=== PATIENT | female | born 1970 | race Caucasian/White ===

== ENCOUNTER 2018-10-23 10:20 | Emergency (ER) | payer MEDICAID, OTHER ==
[2018-10-23 10:35] VITALS: BP 145/71
--- NOTE | 2018-10-23 10:42 | ED Physician Documentation ---
PD HPI URI - Stated complaint Stated Complaint: COUGH/SOA - Chief complaint Chief Complaint: Resp - History obtained from History obtained from: Patient - History of Present Illness Timing - onset: How many weeks ago (3) Timing duration: Weeks (3) Timing details: Gradual onset, Still present Associated symptoms: Fever (initially with illness and then again the past few days), Productive cough. No: Nasal congestion, Sore throat Contributing factors: COPD / asthma. No: Sick contact Improves by: MDI/nebulizer (does help with wheezing moderately). No: Medication (cough med) Worsened by: Activity Similar symptoms before: Diagnosis (has asthma with exac when sick in the past.) Recently seen: Not recently seen Review of Systems Constitutional: reports: Fever, Myalgias Nose: denies: Rhinorrhea / runny nose, Congestion Throat: denies: Sore throat Cardiac: denies: Chest pain / pressure Respiratory: reports: Dyspnea, Cough, Wheezing GI: denies: Abdominal Pain, Nausea, Vomiting, Diarrhea Skin: denies: Rash Musculoskeletal: denies: Extremity swelling Neurologic: reports: Generalized weakness PD PAST MEDICAL HISTORY - Past Medical History Past Medical History: Yes Respiratory: Asthma HEENT: Glaucoma - Past Surgical History 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, 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 - Present Medications Home Medications: Ambulatory Orders Medication Instructions Recorded Confirmed Beclomethasone 80 Mcg [Qvar 80] 2 puffs IH Q4HR PRN 07/26/16 07/26/16 Albuterol Sulf [Ventolin Hfa 2 - 3 puffs INH Q4HR PRN #1 inhaler 10/23/18 Inhaler] Azithromycin [Zithromax] 0 mg PO DAILY #6 tablet 10/23/18 Benzonatate [Tessalon Perle] 100 - 200 mg PO TID PRN #30 capsule 10/23/18 Dexamethasone [Decadron] 4 mg PO DAILY #5 tablet 10/23/18 - Allergies Allergies/Adverse Reactions: Allergies Allergy/AdvReac Type Severity Reaction Status Date / Time aspirin Allergy Rash Verified 10/23/18 10:31 - Social History Does the pt smoke?: No Smoking Status: Former smoker Does the pt drink ETOH?: No Does the pt have substance abuse?: No - Immunizations Immunizations are current?: Yes - POLST Patient has POLST: No PD ED PE NORMAL - Vitals Vital signs reviewed: Yes - General General: Alert and oriented X 3, No acute distress, Well developed/nourished - HEENT HEENT: Ears normal, Pharynx benign - Neck Neck: Supple, no meningeal sign, No adenopathy - Cardiac Cardiac: RRR, No murmur - Respiratory Respiratory: No respiratory distress. No: Clear bilaterally (wheezing noted, but no coarse sounds) - Abdomen Abdomen: Soft, Non tender - Derm Derm: Normal color, Warm and dry - Extremities Extremities: No tenderness to palpate, Normal ROM s pain, No edema, No calf tenderness / cord - Neuro Neuro: Alert and oriented X 3, No motor deficit, Normal speech Results - Vitals Vitals: Vital Signs - 24 hr 10/23/18 10:28 Temperature 35.4 C L Heart Rate 96 Respiratory 16 Rate Blood Pressure 145/71 H O2 Saturation 94 Oxygen O2 Source Room air - Rads (name of study) chest xray Radiology: Prelim report reviewed (no infiltrates nor effusions), See rad report PD MEDICAL DECISION MAKING - ED course Complexity details: reviewed results, considered differential (prolonged caough with pertussis-like character. No pnuemonia. ), d/w patient Departure - Departure Disposition: Home, Self Care Clinical Impression: Acute bronchitis Qualifiers: Bronchitis organism: unspecified organism Qualified Code(s): J20.9 - Acute bronchitis, unspecified Condition: Stable Record reviewed to determine appropriate education?: Yes Instructions: ED Upper Resp Infec Abx Tx Follow-Up: Karina Infante ARNP [Primary Care Provider] - Prescriptions: Albuterol Sulf [Ventolin Hfa Inhaler] 2 - 3 puffs INH Q4HR PRN #1 inhaler PRN Reason: Shortness Of Air/Wheezing Azithromycin [Zithromax] 0 mg PO DAILY #6 tablet Benzonatate [Tessalon Perle] 100 - 200 mg PO TID PRN #30 capsule PRN Reason: Cough Dexamethasone [Decadron] 4 mg PO DAILY #5 tablet Comments: Your chest x-ray appears normal without any signs of pneumonia or fluid or other abnormalities. This sounds bronchial and we will treated as an infection and inflammation with azithromycin antibiotic and Decadron steroid. Use Tessalon as needed for cough suppression. He can use [id number] cough medicine to. Use the albuterol inhaler 2-3 puffs 4 times a day regularly for the next 7-10 days and then extra times as needed. Recheck if not improving over the next 3-5 days though you may still have some degree of mild cough for a few weeks. Discharge Date/Time: 10/23/18 12:37
[2018-10-23] MEDS ORDERED: DOXYCYCLINE 100 MG TABLET PO STA (10:57)
[2018-10-23] MEDS ORDERED: BENZONATATE 100 MG CAPSULE PO STA (10:57)
[2018-10-23] MEDS ORDERED: DEXAMETHASONE 10 MG/ML VIAL PO STA (10:57)
[2018-10-23] MEDS ORDERED: AZITHROMYCIN 250 MG TABLET PO STA (10:59)
[2018-10-23] MEDS ORDERED: CHERRY SYRUP 10 ML UDC PO ONE (11:04)
--- NOTE | 2018-10-23 11:22 | XRAY Report ---
Reason: cough for 3 weeks Procedure Date: 10/23/2018 Accession Number: [id number] / [id number] Procedure: XR - Chest 2 View X-Ray CPT Code: 48562 FULL RESULT: EXAM: CHEST RADIOGRAPHY EXAM DATE: 10/23/2018 11:10 AM. CLINICAL HISTORY: Cough for 3 weeks. COMPARISON: CHEST 2 VIEW PA/LAT 08/06/2014 1:32 AM. TECHNIQUE: 2 views. FINDINGS: Lungs/Pleura: No focal opacities evident. No pleural effusion. No pneumothorax. Normal volumes. Mediastinum: Heart and mediastinal contours are unremarkable. Other: None. IMPRESSION: No acute cardiopulmonary abnormality. RADIA
[2018-10-23] MEDS ORDERED: ALBUTEROL NEB 2.5 MG/3 ML INH STA (11:31)
== END 2018-10-23 12:37 | disposition home or self-care (01) ==
LOC: ED 10:20
DX: J20.9 Acute bronchitis, unspecified (principal); Z87.891 Personal history of nicotine dependence
CPT/HCPCS: 71046; 99283; A9270

== ENCOUNTER 2018-12-25 08:30 | Emergency (ER) | payer MEDICAID ==
[2018-12-25] MEDS ORDERED: ALBUTEROL NEB 2.5 MG/3 ML INH STA (08:45)
[2018-12-25] MEDS ORDERED: DEXAMETHASONE 10 MG/ML VIAL PO STA (08:45)
[2018-12-25] MEDS ORDERED: IPRATROPIUM/ALBUTEROL 3 ML NEB INH STA (08:45)
--- NOTE | 2018-12-25 09:34 | ED Physician Documentation ---
PD HPI DYSPNEA - Stated complaint Stated Complaint: DIFFICUTLY BREATHING - Chief complaint Chief Complaint: Resp - Additional information Additional information: 48-year-old female presents the emergency department for evaluation of wheezing and shortness of breath. The patient has a history of asthma and has been using her inhaler with some Improvement. The patient does continue to smoke and was able to smoke cigarettes on the right up to the hospital. No other associated symptoms. Symptoms are described as moderate. 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 - Present Medications Home Medications: Ambulatory Orders Medication Instructions Recorded Confirmed Albuterol Sulf [Ventolin Hfa 2 - 3 puffs INH Q4HR PRN #1 inhaler 10/23/18 Inhaler] Albuterol Sulf [Ventolin Hfa 1 - 2 puffs INH Q4HR PRN #1 inhaler 12/25/18 Inhaler] - Allergies Allergies/Adverse Reactions: Allergies Allergy/AdvReac Type Severity Reaction Status Date / Time aspirin Allergy Rash Verified 12/25/18 08:39 - Social History Does the pt smoke?: No Smoking Status: Current some day smoker Does the pt drink ETOH?: No Does the pt have substance abuse?: No - Immunizations Immunizations are current?: Yes - POLST Patient has POLST: No PD ED PE NORMAL - General General: Alert and oriented X 3 - HEENT HEENT: Atraumatic, PERRL, EOMI, Ears normal - Cardiac Cardiac: RRR, Strong equal pulses - Respiratory Respiratory: No respiratory distress, Other (Bilateral expiratory wheezing) - Derm Derm: Normal color - Extremities Extremities: No deformity, No edema - Neuro Neuro: Alert and oriented X 3, Normal speech - Psych Psych: Normal mood Results - Vitals Vitals: Vital Signs - 24 hr 12/25/18 12/25/18 08:36 09:04 Temperature 36.6 C Heart Rate 93 90 Respiratory 20 20 Rate Blood Pressure 141/71 H O2 Saturation 94 Oxygen O2 Source Room air PD MEDICAL DECISION MAKING - ED course ED course: The patient's symptoms appear to be secondary to her tobacco usage triggering her asthma. The patient was treated in the emergency department and appears much improved and now appears appropriate for discharge with ongoing outpatient management. I recommended follow-up with primary care and smoking cessation. The patient will return to the emergency department for any worsening or any concerns Departure - Departure Disposition: 01 Home, Self Care Clinical Impression: Asthma exacerbation Qualifiers: Asthma severity: mild Asthma persistence: unspecified Qualified Code(s): J45.901 - Unspecified asthma with (acute) exacerbation Condition: Good Instructions: ED Asthma Acute Ch Follow-Up: Karina Infante ARNP [Primary Care Provider] - Within 1 week Prescriptions: Albuterol Sulf [Ventolin Hfa Inhaler] 1 - 2 puffs INH Q4HR PRN #1 inhaler PRN Reason: Shortness Of Air/Wheezing Comments: Please return to the emergency department for worsening symptoms or any concerns
[2018-12-25 09:45] VITALS: BP 127/77
== END 2018-12-25 09:48 | disposition home or self-care (01) ==
LOC: ED 08:30
DX: J45.901 Unspecified asthma with (acute) exacerbation (principal); F17.200 Nicotine dependence, unspecified, uncomplicated
CPT/HCPCS: 94640; 94664; 99283

== ENCOUNTER 2019-01-23 22:37 | Emergency (ER) | payer MEDICAID ==
[2019-01-23] MEDS ORDERED: CHERRY SYRUP 10 ML UDC PO ONE (23:06)
[2019-01-23] MEDS ORDERED: DEXAMETHASONE 10 MG/ML VIAL PO STA (23:06)
[2019-01-23] MEDS ORDERED: IPRATROPIUM/ALBUTEROL 3 ML NEB INH STA (23:06)
--- NOTE | 2019-01-23 23:08 | ED Physician Documentation ---
PD HPI DYSPNEA - Stated complaint Stated Complaint: SOA/COUGH - Chief complaint Chief Complaint: Resp - History obtained from History obtained from: Patient, Family - History of Present Illness Timing - onset: How many weeks ago (2) Timing - onset during: Rest Timing - duration: Weeks (2) Timing - details: Gradual onset, Still present, Waxing and waning Inciting event(s): URI, Allergic rxn/anaphylaxis Improved by: Inhaler/neb Worsened by: Exertion, Coughing, Allergens Associated symptoms: Cough, Wheezing Similar symptoms before: Diagnosis (asthma) Recently seen: Not recently seen - Additional information Additional information: 48-year-old female with a history of asthma has had an increase in her symptoms over the past 2 weeks and she has had cough without production of sputum and increased shortness of breath where she has been using her inhaler and nebulizer multiple times during the day. She has had the recent of her disabled son about 1 month ago and she is having some emotional issues with that as well. She is not sleeping well. She does have an apartment that has had the mold removed from it and they are now doing this again in her apartment complex. They are cleaning up out side and she believes this has stirred up allergens again. Review of Systems Constitutional: denies: Fever Eyes: denies: Decreased vision Ears: denies: Ear pain Nose: reports: Congestion. 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: section, 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 - Present Medications Home Medications: Ambulatory Orders Medication Instructions Recorded Confirmed Albuterol Sulf [Ventolin Hfa 2 - 3 puffs INH Q4HR PRN #1 inhaler 10/23/18 Inhaler] Albuterol Sulf [Ventolin Hfa 1 - 2 puffs INH Q4HR PRN #1 inhaler 12/25/18 Inhaler] Azithromycin [Zithromax] 250 mg PO DAILY #6 tablet 01/24/19 Lorazepam [Ativan] 1 mg PO Q8HR PRN #12 tablet 01/24/19 predniSONE [Deltasone] 10 mg PO ONCE #26 tablet 01/24/19 - Allergies Allergies/Adverse Reactions: Allergies Allergy/AdvReac Type Severity Reaction Status Date / Time aspirin Allergy Rash Verified 01/23/19 22:42 - Social History Does the pt smoke?: Yes Smoking Status: Light tobacco smoker Does the pt drink ETOH?: No Does the pt have substance abuse?: No - Immunizations Immunizations are current?: Yes - POLST Patient has POLST: No PD ED PE NORMAL - Vitals Vital signs reviewed: Yes (hypertension ) - General General: Alert and oriented X 3, No acute distress, Well developed/nourished - HEENT HEENT: Atraumatic, PERRL, EOMI, Ears normal, Other (dry mucous membranes ) - Neck Neck: Supple, no meningeal sign, No bony TTP - Cardiac Cardiac: RRR, No murmur - Respiratory Respiratory: No respiratory distress, Other (inspritory and expritory wheeze and rhonchi scattered. ) - Abdomen Abdomen: Soft, Non tender - Back Back: No CVA TTP, No spinal TTP - Derm Derm: Normal color, Warm and dry, No rash - Extremities Extremities: No deformity, No edema - Neuro Neuro: Alert and oriented X 3, product consultant 2-12 intact, No motor deficit, No sensory deficit, Normal speech Eye Opening: Spontaneous Motor: Obeys Commands Verbal: Oriented GCS Score: 15 - Psych Psych: Normal mood, Normal affect Results - Vitals Vitals: Vital Signs - 24 hr 01/23/19 01/23/19 22:40 22:53 Temperature 36.2 C L Heart Rate 90 86 Respiratory 18 18 Rate Blood Pressure 152/84 H 146/95 H O2 Saturation 97 97 Oxygen O2 Source Room air - Rads (name of study) chest Radiology: Prelim report reviewed (Impression: Normal two-view chest radiography.), EMP read indepedently, See rad report PD MEDICAL DECISION MAKING - ED course Complexity details: reviewed results, re-evaluated patient, considered differential, d/w patient, d/w family ED course: 48-year-old female with a history of asthma has had an exacerbation of her asthma. She is administered dexamethasone here in the emergency department as well as a DuoNeb treatment and a second albuterol treatment. She does have bronchodilators at home we will place her on a course of prednisone and a short course of Azithromycin as well. Departure - Departure Disposition: Home, Self Care Clinical Impression: Grief at loss of child Asthma exacerbation Qualifiers: Asthma severity: moderate Asthma persistence: persistent Qualified Code(s): J45.41 - Moderate persistent asthma with (acute) exacerbation Condition: Stable Instructions: ED Bronchitis Asthmatic, ED Grief Reaction Follow-Up: Karina Infante ARNP [Primary Care Provider] - Prescriptions: Lorazepam [Ativan] 1 mg PO Q8HR PRN #12 tablet PRN Reason: Anxiety Azithromycin [Zithromax] 250 mg PO DAILY #6 tablet predniSONE [Deltasone] 10 mg PO ONCE #26 tablet
--- NOTE | 2019-01-23 23:31 | XRAY Report ---
Reason: cough soa Procedure Date: 01/23/2019 Accession Number: [id number] / [id number] Procedure: XR - Chest 2 View X-Ray CPT Code: 87373 FULL RESULT: EXAM: CHEST RADIOGRAPHY EXAM DATE: 01/23/2019 11:22 PM. CLINICAL HISTORY: Cough soa. COMPARISON: CHEST 2 VIEW 10/23/2018 11:02 AM. TECHNIQUE: 2 views. FINDINGS: Lungs/Pleura: No focal opacities evident. No pleural effusion. No pneumothorax. Normal volumes. Mediastinum: Heart and mediastinal contours are unremarkable. Other: None. IMPRESSION: Normal 2-view chest radiography. RADIA
[2019-01-24] MEDS ORDERED: ALBUTEROL NEB 2.5 MG/3 ML INH STA (00:06)
[2019-01-24 00:30] VITALS: BP 138/88
== END 2019-01-24 00:33 | disposition home or self-care (01) ==
LOC: ED 22:37
DX: F43.20 Adjustment disorder, unspecified (principal); J45.41 Moderate persistent asthma with (acute) exacerbation; F17.200 Nicotine dependence, unspecified, uncomplicated; Z63.4 Disappearance and death of family member
CPT/HCPCS: 71046; 94640; 99283; 99284; A9270

== ENCOUNTER 2019-03-20 21:54 | Emergency (ER) | payer MEDICAID ==
[2019-03-20] MEDS ORDERED: CHERRY SYRUP 10 ML UDC PO ONE (22:52)
[2019-03-20] MEDS ORDERED: LORazepam 0.5 MG TABLET PO STA (22:52)
[2019-03-20] MEDS ORDERED: DEXAMETHASONE 10 MG/ML VIAL PO STA (22:52)
[2019-03-20] MEDS ORDERED: IPRATROPIUM/ALBUTEROL 3 ML NEB INH STA (22:52)
--- NOTE | 2019-03-20 22:58 | ED Physician Documentation ---
PD HPI DYSPNEA - Stated complaint Stated Complaint: SOA - Chief complaint Chief Complaint: Resp - History obtained from History obtained from: Patient, Family (sister) - History of Present Illness Timing - onset: How many days ago (several) Timing - details: Waxing and waning Associated symptoms: Cough, Wheezing Similar symptoms before: Diagnosis (asthma) - Treatment prior to arrival Treatment prior to arrival: albuterol inhaler - Additional information Additional information: The patient is a 48-year-old female who presents with dyspnea that has been waxing and waning for several days, and became worse tonight with a "full-blown panic attack." She has a history of asthma, but has not gotten relief with her albuterol inhaler. She reports a nonproductive cough and wheezing. She denies fever or chest pain. She complains of extreme anxiety and intermittent panic attacks since the of her disabled son 3 months ago. She has been seen in the emergency department twice in the past 3 months with similar symptoms. She was last seen 1 month ago with an acute exacerbation of asthma and associated anxiety. Review of Systems Constitutional: denies: Fever Ears: denies: Tinnitus/ringing Nose: denies: Congestion Throat: denies: Sore throat Cardiac: denies: Chest pain / pressure Respiratory: reports: Dyspnea, Cough, Wheezing GI: denies: Abdominal Pain, Nausea, Vomiting : denies: Dysuria Skin: denies: Rash Musculoskeletal: denies: Back pain, Extremity swelling Neurologic: denies: Focal weakness, Numbness, Headache Psychiatric: reports: Anxiety PD PAST MEDICAL HISTORY - Past Medical History Respiratory: Asthma Endocrine/Autoimmune: None HEENT: Glaucoma - Past Surgical History Past Surgical History: Yes 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, 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 - Present Medications Home Medications: Ambulatory Orders Medication Instructions Recorded Confirmed Albuterol Sulf [Ventolin Hfa 2 - 3 puffs INH Q4HR PRN #1 inhaler 10/23/18 03/20/19 Inhaler] Albuterol Sulf [Ventolin Hfa 1 - 2 puffs INH Q4HR PRN #1 inhaler 12/25/18 03/20/19 Inhaler] Albuterol 1 neb INH Q4H 03/20/19 03/20/19 Benzonatate [Tessalon Perle] 100 mg PO TID 03/20/19 03/20/19 LORazepam [Ativan] 0.5 mg PO HS PRN #10 tablet 03/20/19 predniSONE [Prednisone] 40 mg PO DAILY #10 tablet 03/20/19 - Allergies Allergies/Adverse Reactions: Allergies Allergy/AdvReac Type Severity Reaction Status Date / Time aspirin Allergy Rash Verified 03/20/19 22:03 - Social History Does the pt smoke?: Yes Smoking Status: Light tobacco smoker Does the pt drink ETOH?: No Does the pt have substance abuse?: No - Immunizations Immunizations are current?: Yes - POLST Patient has POLST: No PD ED PE NORMAL - Vitals Vital signs reviewed: Yes (Borderline systolic hypertension.) - General General: Alert and oriented X 3, Well developed/nourished, Other (Obese.) - HEENT HEENT: Atraumatic, Pharynx benign - Neck Neck: Supple, no meningeal sign, No adenopathy, No JVD - Cardiac Cardiac: RRR - Respiratory Respiratory: Other (Diffuse expiratory wheezing bilaterally.) - Abdomen Abdomen: Soft, Non tender - Back Back: No CVA TTP - Derm Derm: No rash - Extremities Extremities: No edema, No calf tenderness / cord - Neuro Neuro: Alert and oriented X 3, No motor deficit, Normal speech Results - Vitals Vitals: Vital Signs - 24 hr 03/20/19 03/20/19 03/20/19 21:58 23:15 23:52 Temperature 36.5 C Heart Rate 87 76 74 Respiratory 22 18 18 Rate Blood Pressure 149/75 H 179/84 H O2 Saturation 94 95 Oxygen O2 Source Room air PD MEDICAL DECISION MAKING - ED course Complexity details: reviewed old records, re-evaluated patient, considered differential, d/w patient, d/w family ED course: The patient's presentation is most consistent with acute exacerbation of asthma. I doubt pneumonia or pulmonary embolus, and her presentation does not suggest congestive heart failure. There is an anxiety component associated with her symptoms. Treatment in the emergency department included administration of DuoNeb nebulizer, dexamethasone 10 mg orally, and Ativan 0.5 mg orally. On reevaluation she feels subjectively much improved, and auscultation of her lungs reveals much better air movement with minimal expiratory wheezing. She is being discharged with prescription for short course of prednisone and for Ativan, 10 tablets. I discussed with her and her sister symptomatic treatment, outpatient follow-up, as well as potentially worrisome signs or symptoms that should prompt reevaluation in the emergency department. Departure - Departure Disposition: 01 Home, Self Care Clinical Impression: Anxiety reaction Asthma exacerbation Qualifiers: Asthma severity: unspecified severity Asthma persistence: unspecified Qualified Code(s): J45.901 - Unspecified asthma with (acute) exacerbation Condition: Stable Instructions: ED Bronchitis Asthmatic, ED Panic Attack Follow-Up: Karina Infante ARNP [Primary Care Provider] - Prescriptions: LORazepam [Ativan] 0.5 mg PO HS PRN #10 tablet PRN Reason: Anxiety predniSONE [Prednisone] 40 mg PO DAILY #10 tablet Comments: Continue using your albuterol inhaler and nebulizer as previously prescribed. Try to stop smoking cigarettes. Take prednisone daily for the next 5 days as prescribed. You can use Ativan if needed for acute stress reaction. Follow-up with your primary physician within 1 to 2 weeks. Call to schedule an appointment. Return to the emergency department if you develop increasing difficulty breathing, or otherwise worsening symptoms. Discharge Date/Time: 03/20/19 23:53
[2019-03-20 23:53] VITALS: BP 179/84
== END 2019-03-20 23:53 | disposition home or self-care (01) ==
LOC: ED 21:54
DX: J45.901 Unspecified asthma with (acute) exacerbation (principal); F41.1 Generalized anxiety disorder; F17.200 Nicotine dependence, unspecified, uncomplicated
CPT/HCPCS: 94640; 99283; 99284; A9270

== ENCOUNTER 2019-05-13 22:52 | Emergency (ER) | payer MEDICAID ==
--- NOTE | 2019-05-14 00:08 | XRAY Report ---
Reason: cough and SOA Procedure Date: 05/13/2019 Accession Number: [id number] / [id number] Procedure: XR - Chest 2 View X-Ray CPT Code: 72823 FULL RESULT: EXAM: CHEST RADIOGRAPHY EXAM DATE: 05/13/2019 11:41 PM. CLINICAL HISTORY: Cough and shortness of breath. COMPARISON: CHEST 2 VIEW 01/23/2019 11:09 PM. TECHNIQUE: 2 views. FINDINGS: Lungs/Pleura: No alveolar consolidation or pleural effusion seen. Mild bronchial wall thickening. No pneumothorax. Mediastinum: Heart and mediastinal contours are unremarkable. Other: None. IMPRESSION: 1. Mild bronchial wall thickening. This can be seen with bronchitis or reactive airways disease. RADIA
[2019-05-14] MEDS ORDERED: IPRATROPIUM/ALBUTEROL 3 ML NEB INH STA (01:20)
[2019-05-14] MEDS ORDERED: ALBUTEROL NEB 2.5 MG/3 ML INH STA (03:02)
[2019-05-14] MEDS ORDERED: predniSONE 20 MG TABLET PO STA (03:02)
[2019-05-14 05:05] VITALS: BP 159/88
--- NOTE | 2019-05-15 14:48 | ED Physician Documentation ---
PD HPI DYSPNEA - Stated complaint Stated Complaint: SOA/COUGH/ANXIETY - Chief complaint Chief Complaint: Resp - History obtained from History obtained from: Patient - History of Present Illness Timing - onset: How many days ago (2-3) Timing - duration: Days Timing - details: Gradual onset, Waxing and waning Pain level now: 0 Improved by: Inhaler/neb, Rest Worsened by: Exertion, Coughing Associated symptoms: Cough (nonproductive/dry), Wheezing, Anxiety. No: Fever, Chest pain / discomfort Similar symptoms before: Diagnosis (asthma) Recently seen: Not recently seen - Additional information Additional information: 5th [facility] ED visit this year for similar symptoms. 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 inadequate relief with neb treatments at home. 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 - Present Medications Home Medications: Ambulatory Orders Medication Instructions Recorded Confirmed Albuterol Sulf [Ventolin Hfa 2 - 3 puffs INH Q4HR PRN #1 inhaler 10/23/18 03/20/19 Inhaler] Albuterol Sulf [Ventolin Hfa 1 - 2 puffs INH Q4HR PRN #1 inhaler 12/25/18 03/20/19 Inhaler] Albuterol 1 neb INH Q4H 03/20/19 03/20/19 Benzonatate [Tessalon Perle] 100 mg PO TID 03/20/19 03/20/19 LORazepam [Ativan] 0.5 mg PO HS PRN #10 tablet 03/20/19 predniSONE [Prednisone] 40 mg PO DAILY #10 tablet 03/20/19 LORazepam [Lorazepam] 0.5 mg PO TID PRN #10 tablet 05/14/19 predniSONE [Prednisone] 40 mg PO DAILY #8 tablet 05/14/19 - Allergies Allergies/Adverse Reactions: Allergies Allergy/AdvReac Type Severity Reaction Status Date / Time aspirin Allergy Rash Verified 05/13/19 23:02 - Social History Does the pt smoke?: Yes Smoking Status: Current every day smoker Does the pt drink ETOH?: No Does the pt have substance abuse?: No - Immunizations Immunizations are current?: Yes - POLST Patient has POLST: No PD ED PE NORMAL - Vitals Vital signs reviewed: Yes - General General: Alert and oriented X 3, No acute distress, Well developed/nourished - Neck Neck: Supple, no meningeal sign - Cardiac Cardiac: RRR, No murmur - Respiratory Respiratory: No respiratory distress - Extremities Extremities: No edema PD ED PE EXPANDED - Respiratory Respiratory: Wheezing (bilateral expiratory) Results - Vitals Vitals: Oxygen O2 Source Room air Oxygen Flow Rate 2.5 PD MEDICAL DECISION MAKING - ED course Complexity details: reviewed old records, re-evaluated patient, considered differential, d/w patient ED course: patient reported improvement with duoneb and further improvement with albuterol neb (second neb tx). given 60mg prednisone and rx for prednisone and ativan. lungs have mild end-expiratory wheezing bilaterally on reexam prior to discharge Departure - Departure Disposition: 01 Home, Self Care Clinical Impression: Asthma exacerbation Qualifiers: Asthma severity: mild Asthma persistence: intermittent Qualified Code(s): J45.21 - Mild intermittent asthma with (acute) exacerbation Condition: Good Instructions: ED Reactive Airway Disease Follow-Up: Karina Infante ARNP [Primary Care Provider] - Within 3 Days Prescriptions: LORazepam [Lorazepam] 0.5 mg PO TID PRN #10 tablet PRN Reason: Anxiety predniSONE [Prednisone] 40 mg PO DAILY #8 tablet Discharge Date/Time: 05/14/19 05:05
== END 2019-05-14 05:05 | disposition home or self-care (01) ==
LOC: ED 22:52
DX: J45.21 Mild intermittent asthma with (acute) exacerbation (principal); F17.200 Nicotine dependence, unspecified, uncomplicated
CPT/HCPCS: 71046; 94640; 99284; J7512

== ENCOUNTER 2019-06-17 23:55 | Outpatient (CLI) | payer MEDICAID | END 2019-06-17 23:56 | disposition critical access hospital (66) | LOC: EMS 23:55 | PROVIDERS: ATTEND Surgery | DX: R06.2 Wheezing (principal) | CPT/HCPCS: A0425; A0427; A0999 ==

== ENCOUNTER 2019-06-18 00:14 | Emergency (ER) | payer MEDICAID ==
--- NOTE | 2019-06-18 00:31 | ED Physician Documentation ---
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 No: Fever Similar symptoms before: Diagnosis (similar to previous asthma exacerbations) - Additional information Additional information: BIBA for dyspnea, wheezing c/w previous episodes of asthma exacerbation. Given duoneb and 125mg IV solumedrol en route with improvement. 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: Yes Smoking Status: Current every day smoker Does the pt drink ETOH?: No Does the pt have substance abuse?: No - Immunizations Immunizations are current?: Yes - POLST Patient has POLST: No PD ED PE NORMAL - Vitals Vital signs reviewed: Yes - General General: Alert and oriented X 3, No acute distress, Well developed/nourished - HEENT HEENT: Moist mucous membranes - Neck Neck: Supple, no meningeal sign - Cardiac Cardiac: RRR, No murmur - Respiratory Respiratory: No respiratory distress - Extremities Extremities: No edema PD ED PE EXPANDED - Respiratory Respiratory: Wheezing (bilateral course expiratory wheezing) Results - Vitals Vitals: Vital Signs - 24 hr 06/18/19 06/18/19 06/18/19 00:15 00:52 01:07 Temperature 36.6 C Heart Rate 94 85 90 Respiratory 18 16 Rate Blood Pressure 152/90 H O2 Saturation 94 97 06/18/19 01:33 Temperature Heart Rate 94 Respiratory 20 Rate Blood Pressure 128/67 O2 Saturation 93 Oxygen O2 Source Room air PD MEDICAL DECISION MAKING - ED course Complexity details: reviewed old records, reviewed results, re-evaluated patient, considered differential, d/w patient ED course: given albuterol neb in ED. She already had improvement en route with duoneb and was given 125mg IV solumedrol en route as well. On reevaluation prior to ED discharge, she reported further improvement and was comfortable going home. Auscultation of lungs prior to discharge revealed improved aeration and end- expiratory wheezing bilaterally that was also improved compared to initial exam Departure - Departure Disposition: 01 Home, Self Care Clinical Impression: Asthma exacerbation Qualifiers: Asthma severity: moderate Asthma persistence: unspecified Qualified Code(s): J45.901 - Unspecified asthma with (acute) exacerbation Condition: Good Instructions: ALBUTEROL Oral Inhaler, ED Reactive Airway Disease Follow-Up: Karina Infante ARNP [Primary Care Provider] - Prescriptions: Albuterol Sulf [Ventolin Hfa Inhaler] 1 - 2 puffs INH Q4HR PRN #1 inhaler PRN Reason: Shortness Of Air/Wheezing predniSONE [Prednisone] 40 mg PO DAILY 4 Days #8 tablet Discharge Date/Time: 06/18/19 01:33
[2019-06-18] MEDS ORDERED: ALBUTEROL NEB 2.5 MG/3 ML INH STA (00:41)
[2019-06-18 01:34] VITALS: BP 128/67
== END 2019-06-18 01:33 | disposition home or self-care (01) ==
LOC: EDUNIT# → ED 00:14
DX: J45.901 Unspecified asthma with (acute) exacerbation (principal); F17.200 Nicotine dependence, unspecified, uncomplicated
CPT/HCPCS: 94640; 94664; 99283; 99284

== ENCOUNTER 2019-08-28 20:27 | Emergency (ER) | payer MEDICAID ==
[2019-08-28] MEDS ORDERED: LORazepam 1 MG TABLET PO STA (20:56)
[2019-08-28] MEDS ORDERED: predniSONE 20 MG TABLET PO STA (20:56)
--- NOTE | 2019-08-28 21:01 | ED Physician Documentation ---
PD HPI CHEST PAIN - Stated complaint Stated Complaint: SOA/HEAVY CHEST - Chief complaint Chief Complaint: Resp - History obtained from History obtained from: Patient - History of Present Illness Timing - onset: Other (49-year-old woman with history of asthma presents with some chest tightness this been going on for 3 days. She says is consistent with prior episodes of anxiety and wheezing which has been increased because of an exposure to mold at home. She denies palpitations. She does have shortness of breath. Dry cough. No pedal edema or calf pain. Review of the chart shows that she is here fairly frequently for similar symptoms and the work-ups are generally negative and she gets relief with prednisone and Ativan.) Review of Systems Constitutional: denies: Fever, Chills Cardiac: reports: Chest pain / pressure. denies: Palpitations, Pedal edema, Calf pain Respiratory: reports: Dyspnea, Cough, Wheezing. 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 - Present Medications Home Medications: Ambulatory Orders Medication Instructions Recorded Confirmed Albuterol Sulf [Ventolin Hfa 1 - 2 puffs INH Q4HR PRN #1 inhaler 12/25/18 03/20/19 Inhaler] Albuterol Sulf [Ventolin Hfa 1 - 2 puffs INH Q4HR PRN #1 inhaler 06/18/19 Inhaler] FLUoxetine [PROzac] 10 mg PO DAILY 06/18/19 06/18/19 predniSONE [Prednisone] 40 mg PO DAILY 4 Days #8 tablet 06/18/19 Lorazepam [Ativan] 1 mg PO TID PRN #15 tablet 08/28/19 predniSONE [Deltasone] 60 mg PO DAILY 5 Days #15 tablet 08/28/19 - Allergies Allergies/Adverse Reactions: Allergies Allergy/AdvReac Type Severity Reaction Status Date / Time aspirin Allergy Rash Verified 06/18/19 00:26 - Social History Does the pt smoke?: Yes Smoking Status: Current every day smoker Does the pt drink ETOH?: No Does the pt have substance abuse?: No - Immunizations Immunizations are current?: Yes - POLST Patient has POLST: No PD ED PE NORMAL - Vitals Vital signs reviewed: Yes - General General: Alert and oriented X 3, No acute distress - HEENT HEENT: PERRL, EOMI - Neck Neck: Supple, no meningeal sign, No bony TTP - Cardiac Cardiac: RRR, No murmur - Respiratory Respiratory: No respiratory distress, Other (Mild left-sided wheezing, decent air motion. She declines a breathing treatment on initial evaluation because she had a DuoNeb at home and feels better.) - Abdomen Abdomen: Normal bowel sounds, Soft, Non tender - Extremities Extremities: No edema, No calf tenderness / cord - Neuro Neuro: Alert and oriented X 3, Normal speech Results - Vitals Vitals: Vital Signs - 24 hr 08/28/19 08/28/19 20:30 21:57 Temperature 36.6 C 36.6 C Heart Rate 75 79 Respiratory 18 17 Rate Blood Pressure 155/105 H 125/73 O2 Saturation 95 100 Oxygen O2 Source Room air - EKG (time done) 2034 Rate: Rate (enter#) Rhythm: NSR [place]: Normal Intervals: Normal NC, RBBB, Other (LAFB) Ischemia: Normal ST segments Computer interpretation: Agree with computer - Labs Labs: Laboratory Tests 08/28/19 08/28/19 08/28/19 21:03 21:03 21:03 WBC 9.6 RBC 4.35 Hgb 13.2 Hct 40.7 MCV 93.6 MCH 30.3 MCHC 32.4 RDW 13.3 Plt Count 212 MPV 11.1 H Neut # (Auto) 4.4 Lymph # (Auto) 3.9 H [place] # (Auto) 0.7 Eos # (Auto) 0.5 Baso # (Auto) 0.0 Absolute Nucleated RBC 0.00 Nucleated RBC % 0.0 Sodium 137 Potassium 3.6 Chloride 102 Carbon Dioxide 26 Anion Gap 9.0 BUN 19 Creatinine 0.7 Estimated GFR (MDRD) 88 L Glucose 96 Calcium 9.1 Total Bilirubin 0.4 AST 24 ALT 20 Alkaline Phosphatase 88 Troponin I High Sens < 2.3 L Total Protein 7.3 Albumin 4.3 Globulin 3.0 Albumin/Globulin Ratio 1.4 Lipase 24 PD MEDICAL DECISION MAKING - ED course ED course: 49-year-old woman with wheezing, history of asthma. Started on prednisone. And symptoms most referrable to an exacerbation of recurrent anxiety issues, cardiac work-up was negative. Departure - Departure Disposition: 01 Home, Self Care Clinical Impression: Anxiety reaction, Dyspnea Asthma exacerbation Qualifiers: Asthma severity: moderate Asthma persistence: persistent Qualified Code(s): J45.41 - Moderate persistent asthma with (acute) exacerbation Condition: Good Record reviewed to determine appropriate education?: Yes Instructions: Asthma Dc Prescriptions: Lorazepam [Ativan] 1 mg PO TID PRN #15 tablet PRN Reason: Anxiety predniSONE [Deltasone] 60 mg PO DAILY 5 Days #15 tablet Comments: Call your doctor to arrange a follow-up appointment, make the next available appointment. In the interim, return anytime if worse or if new symptoms develop. Your blood pressure was elevated today on check into the emergency department. This does not mean that you have hypertension, it is a common phenomenon to come to the emergency department and have elevated blood pressure. I recommend that you see your primary care physician within the week to have it rechecked when you are feeling better. Discharge Date/Time: 08/28/19 22:03
[2019-08-28 21:22] LABS: BASOPHILS % (AUTO) 0.4 %; EOSINOPHILS # (AUTO) 0.5 10^3/uL (0.0-0.7); HGB - HEMOGLOBIN 13.2 g/dL (12.0-16.0); LYMPHOCYTES # (AUTO) 3.9 10^3/uL (1.5-3.5); LYMPHOCYTES % (AUTO) 40.6 %; MEAN CORPUSCULAR HEMOGLOBIN 30.3 pg (27.0-31.0); MEAN CORPUSCULAR HGB CONC 32.4 g/dL (32.0-36.0); MEAN CORPUSCULAR VOLUME 93.6 fL (81.0-99.0); MEAN PLATELET VOLUME 11.1 fL (7.9-10.8); MONOCYTES # (AUTO) 0.7 10^3/uL (0.0-1.0); MONOCYTES % (AUTO) 7.4 %; NEUTROPHILS # (AUTO) 4.4 10^3/uL (1.5-6.6); NEUTROPHILS % (AUTO) 46.3 %; PLT - PLATELET COUNT 212 10^3/uL (130-450); RED BLOOD COUNT 4.35 10^6/uL (4.20-5.40); RED CELL DISTRIBUTION WIDTH 13.3 % (12.0-15.0); WHITE BLOOD COUNT 9.6 x10^3/uL (4.8-10.8)
--- NOTE | 2019-08-28 21:25 | XRAY Report ---
Reason: chest pain Procedure Date: 08/28/2019 Accession Number: [id number] / [id number] Procedure: XR - Chest 1 View X-Ray CPT Code: 29124 Final Report FULL RESULT: EXAM: CHEST RADIOGRAPHY EXAM DATE: 08/28/2019 08:51 PM. CLINICAL HISTORY: Chest pain. COMPARISON: CHEST 2 VIEW 05/13/2019 11:35 PM. TECHNIQUE: 1 view. FINDINGS: Lungs/Pleura: No focal opacities evident. No pleural effusion. No pneumothorax. Mediastinum: Within exam limitations, the cardiomediastinal contour is normal. Other: None. IMPRESSION: Negative chest RADIA
[2019-08-28 21:40] LABS: ALBUMIN 4.3 g/dL (3.2-5.5); ALBUMIN/GLOBULIN RATIO 1.4 (1.0-2.2); BILIRUBIN,TOTAL 0.4 mg/dL (0.2-1.0); CALCIUM 9.1 mg/dL (8.5-10.3); CREATININE 0.7 mg/dL (0.4-1.0); TOTAL PROTEIN 7.3 g/dL (6.7-8.2)
[2019-08-28 21:58] VITALS: BP 125/73
== END 2019-08-28 22:03 | disposition home or self-care (01) ==
LOC: ED 20:27
DX: J45.41 Moderate persistent asthma with (acute) exacerbation (principal); F41.1 Generalized anxiety disorder; I45.2 Bifascicular block; F17.200 Nicotine dependence, unspecified, uncomplicated; Z77.120 Contact with and (suspected) exposure to mold (toxic)
CPT/HCPCS: 36415; 71045; 80053; 83690; 84484; 85025; 93005; 99284; J7512; J8499

== ENCOUNTER 2019-09-19 09:15 | Outpatient (CLI) | payer MEDICAID ==
[2019-09-19 11:57] LABS: BASOPHILS % (AUTO) 0.5 %; EOSINOPHILS # (AUTO) 0.3 10^3/uL (0.0-0.7); EOSINOPHILS % (AUTO) 3.5 %; HGB - HEMOGLOBIN 13.6 g/dL (12.0-16.0); LYMPHOCYTES # (AUTO) 3.1 10^3/uL (1.5-3.5); MEAN CORPUSCULAR HEMOGLOBIN 30.9 pg (27.0-31.0); MEAN CORPUSCULAR VOLUME 93.6 fL (81.0-99.0); MEAN PLATELET VOLUME 11.8 fL (7.9-10.8); MONOCYTES # (AUTO) 0.6 10^3/uL (0.0-1.0); MONOCYTES % (AUTO) 6.9 %; NEUTROPHILS # (AUTO) 4.7 10^3/uL (1.5-6.6); NEUTROPHILS % (AUTO) 53.8 %; PLT - PLATELET COUNT 207 10^3/uL (130-450); RED CELL DISTRIBUTION WIDTH 13.5 % (12.0-15.0); WHITE BLOOD COUNT 8.8 x10^3/uL (4.8-10.8)
[2019-09-19 12:41] LABS: CALCIUM 9.5 mg/dL (8.5-10.3); CREATININE 0.7 mg/dL (0.4-1.0)
== END 2019-09-19 23:59 | disposition home or self-care (01) ==
LOC: LAB.N 09:15
PROVIDERS: ATTEND Physician Assistant Medical
DX: E66.01 Morbid (severe) obesity due to excess calories (principal); F41.8 Other specified anxiety disorders; J45.998 Other asthma
CPT/HCPCS: 36415; 80048; 84443; 85025

== ENCOUNTER 2019-10-21 19:39 | Emergency (ER) | payer MEDICAID ==
[2019-10-21] MEDS ORDERED: IPRATROPIUM/ALBUTEROL 3 ML NEB INH STA (21:11)
--- NOTE | 2019-10-21 21:41 | ED Physician Documentation ---
PD HPI DYSPNEA - Stated complaint Stated Complaint: SOA, ANXIETY - Chief complaint Chief Complaint: MHE - History obtained from History obtained from: Patient - History of Present Illness Timing - onset: Today Timing - details: Gradual onset Worsened by: Exertion Associated symptoms: No: Fever, Cough Similar symptoms before: Diagnosis (asthma) Recently seen: Not recently seen - Additional information Additional information: c/o dyspnea, wheezing c/w asthma exacerbation. 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 - Present Medications Home Medications: Ambulatory Orders Medication Instructions Recorded Confirmed Albuterol Sulf [Ventolin Hfa 1 - 2 puffs INH Q4HR PRN #1 inhaler 12/25/18 03/20/19 Inhaler] Albuterol Sulf [Ventolin Hfa 1 - 2 puffs INH Q4HR PRN #1 inhaler 06/18/19 Inhaler] FLUoxetine [PROzac] 10 mg PO DAILY 06/18/19 06/18/19 predniSONE [Prednisone] 40 mg PO DAILY 4 Days #8 tablet 06/18/19 Lorazepam [Ativan] 1 mg PO TID PRN #15 tablet 08/28/19 predniSONE [Deltasone] 60 mg PO DAILY 5 Days #15 tablet 08/28/19 Lorazepam [Ativan] 1 mg PO TID PRN #15 tablet 10/21/19 predniSONE [Prednisone] 40 mg PO DAILY 4 Days #8 tablet 10/21/19 - Allergies Allergies/Adverse Reactions: Allergies Allergy/AdvReac Type Severity Reaction Status Date / Time aspirin Allergy Rash Verified 06/18/19 00:26 - Social History Does the pt smoke?: Yes Smoking Status: Current every day smoker Does the pt drink ETOH?: No Does the pt have substance abuse?: No - Immunizations Immunizations are current?: Yes - POLST Patient has POLST: No PD ED PE NORMAL - Vitals Vital signs reviewed: Yes - General General: Alert and oriented X 3, No acute distress, Well developed/nourished - Cardiac Cardiac: RRR, No murmur - Respiratory Respiratory: No respiratory distress, Other (bilateral expiratory wheezing) Results - Vitals Vitals: Oxygen O2 Source Room air PD MEDICAL DECISION MAKING - ED course Complexity details: considered differential, d/w patient ED course: improved after duoneb and po ativan, given prednisone and ativan rx Departure - Departure Disposition: Home, Self Care Clinical Impression: Anxiety reaction, Asthma exacerbation Condition: Good Instructions: ED Stress React, ED Reactive Airway Disease Follow-Up: Gil Madison PA-C [Primary Care Provider] - Prescriptions: Lorazepam [Ativan] 1 mg PO TID PRN #15 tablet PRN Reason: Anxiety predniSONE [Prednisone] 40 mg PO DAILY 4 Days #8 tablet Discharge Date/Time: 10/21/19 22:07
[2019-10-21] MEDS ORDERED: predniSONE 20 MG TABLET PO STA (21:58)
[2019-10-21] MEDS ORDERED: LORazepam 1 MG TABLET PO STA (21:58)
[2019-10-21 22:07] VITALS: BP 153/92
== END 2019-10-21 22:07 | disposition home or self-care (01) ==
LOC: ED 19:39
DX: J45.901 Unspecified asthma with (acute) exacerbation (principal); F41.9 Anxiety disorder, unspecified; F17.200 Nicotine dependence, unspecified, uncomplicated
CPT/HCPCS: 94640; 99283; J7512; J8499

== ENCOUNTER 2019-12-09 14:32 | Emergency (ER) | payer MEDICAID ==
--- NOTE | 2019-12-09 15:39 | ED Physician Documentation ---
PD HPI DYSPNEA - Stated complaint Stated Complaint: SOA - Chief complaint Chief Complaint: Resp - History obtained from History obtained from: Patient - History of Present Illness Timing - onset: How many weeks ago (1-2) Timing - onset during: Light activity Timing - details: Gradual onset, Waxing and waning Inciting event(s): Emotional event (also her son a year ago and his birthday is coming up, which has her sad and anxious.). No: Out of meds, URI (does not feel ill, but has history of allergies and is feeling her asthma worse this week. Some congestion and dry cough.) Worsened by: Exertion, Coughing Associated symptoms: Cough, Wheezing. No: Fever, Hemoptysis Similar symptoms before: Diagnosis (asthma) Review of Systems Constitutional: denies: Fever, Chills, Myalgias Nose: reports: Congestion. denies: Rhinorrhea / runny nose Throat: denies: Sore throat Cardiac: denies: Chest pain / pressure Respiratory: reports: Dyspnea, Cough, Wheezing GI: denies: Nausea, Vomiting, Diarrhea Psychiatric: reports: Depressed, Anxiety, Insomnia. 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 - Present Medications Home Medications: Ambulatory Orders Medication Instructions Recorded Confirmed Albuterol Sulf [Ventolin Hfa 1 - 2 puffs INH Q4HR PRN #1 inhaler 06/18/19 Inhaler] FLUoxetine [PROzac] 10 mg PO BID 06/18/19 06/18/19 Albuterol Sulfate [Albuterol 2 puffs IH QID #1 hfa.aer.ad 12/09/19 Sulfate Hfa] Cetirizine [ZyrTEC] 10 mg PO DAILY #20 tablet 12/09/19 LORazepam [Ativan] 1 mg PO BID PRN #18 tablet 12/09/19 dexAMETHasone [Decadron] 4 mg PO DAILY #7 tablet 12/09/19 - Allergies Allergies/Adverse Reactions: Allergies Allergy/AdvReac Type Severity Reaction Status Date / Time aspirin Allergy Rash Verified 12/09/19 14:51 - Social History Does the pt smoke?: Yes Smoking Status: Current every day smoker Does the pt drink ETOH?: No Does the pt have substance abuse?: No - Immunizations Immunizations are current?: Yes - POLST Patient has POLST: No PD ED PE NORMAL - Vitals Vital signs reviewed: Yes - General General: Alert and oriented X 3, No acute distress, Well developed/nourished - HEENT HEENT: Ears normal, Moist mucous membranes, Pharynx benign - Neck Neck: Supple, no meningeal sign, No adenopathy - Cardiac Cardiac: RRR, No murmur - Respiratory Respiratory: No: Clear bilaterally (tight sounds and difuse mild wheezing. ) - Abdomen Abdomen: Soft, Non tender - Derm Derm: Normal color, Warm and dry Results - Vitals Vitals: Vital Signs - 24 hr 12/09/19 12/09/19 12/09/19 14:48 16:12 16:53 Temperature 36.4 C L Heart Rate 84 76 79 Respiratory 18 18 18 Rate Blood Pressure 125/87 H 152/94 H O2 Saturation 99 98 Oxygen O2 Source Room air PD MEDICAL DECISION MAKING - ED course Complexity details: considered differential (has cough with exac of COPD/asthma, seems likely allergies as does not have fever/aches/etc. Also with anxiety related to grief. Has not had counseling even though son a year ago. ), d/w patient Departure - Departure Disposition: 01 Home, Self Care Clinical Impression: Grief reaction with prolonged bereavement Dyspnea Qualifiers: Dyspnea type: shortness of breath Qualified Code(s): R06.02 - Shortness of breath Exacerbation of asthma Qualifiers: Asthma severity: mild Asthma persistence: intermittent Qualified Code(s): J45.21 - Mild intermittent asthma with (acute) exacerbation Instructions: ED Bronchitis Asthmatic, ED Grief Reaction Follow-Up: Gil Madison PA-C [Primary Care Provider] - Prescriptions: Albuterol Sulfate [Albuterol Sulfate Hfa] 2 puffs IH QID #1 hfa.aer.ad Cetirizine [ZyrTEC] 10 mg PO DAILY #20 tablet dexAMETHasone [Decadron] 4 mg PO DAILY #7 tablet LORazepam [Ativan] 1 mg PO BID PRN #18 tablet PRN Reason: Alcohol Withdrawal Comments: Stay well-hydrated. Use your albuterol inhaler 2 puffs 3-4 times a day for the next week or so and then as needed. Decadron steroid for inflammation of the airways and to decrease allergy symptoms daily for a week. Cetirizine antihistamine daily for 2 to 3 weeks for allergies. Continue other usual medications. Add lorazepam twice daily as needed for anxiety. Call to arrange short-term counseling to help with the grief reactions and the subsequent anxiety. Return as needed. Discharge Date/Time: 12/09/19 17:04
[2019-12-09] MEDS ORDERED: IPRATROPIUM/ALBUTEROL 3 ML NEB INH STA (15:54)
[2019-12-09] MEDS ORDERED: DEXAMETHASONE 10 MG/ML VIAL PO STA (15:55)
[2019-12-09] MEDS ORDERED: LORazepam 1 MG TABLET PO STA (15:55)
[2019-12-09] MEDS ORDERED: CHERRY SYRUP 10 ML UDC PO ONE (15:55)
--- NOTE | 2019-12-09 16:38 | XRAY Report ---
Reason: dyspnea/ cough Procedure Date: 12/09/2019 Accession Number: [id number] / [id number] Procedure: XR - Chest 2 View X-Ray CPT Code: 17173 Final Report FULL RESULT: EXAM: CHEST RADIOGRAPHY EXAM DATE: 12/09/2019 04:31 PM. CLINICAL HISTORY: Dyspnea/ cough. COMPARISON: CHEST 1 VIEW 08/28/2019 8:45 PM. TECHNIQUE: 2 views. FINDINGS: Lungs/Pleura: No focal opacities evident. No pleural effusion. No pneumothorax. Normal volumes. Mediastinum: Heart and mediastinal contours are unremarkable. Other: None. IMPRESSION: Normal 2-view chest radiography. RADIA
[2019-12-09 16:54] VITALS: BP 152/94
== END 2019-12-09 17:04 | disposition home or self-care (01) ==
LOC: ED 14:32
DX: J45.21 Mild intermittent asthma with (acute) exacerbation (principal); F17.200 Nicotine dependence, unspecified, uncomplicated; F43.22 Adjustment disorder with anxiety
CPT/HCPCS: 71046; 94640; 99284; A9270; J8499

== ENCOUNTER 2021-09-19 21:04 | Emergency (ER) | payer MEDICAID ==
[2021-09-19 21:13] VITALS: BP 147/84
--- NOTE | 2021-09-19 22:24 | ED Physician Documentation ---
PD HPI CHEST PAIN - Stated complaint Stated Complaint: CHEST PX - Chief complaint Chief Complaint: MHE - History obtained from History obtained from: Patient - History of Present Illness Timing - onset: Today Timing - onset during: Rest Timing - duration: Hours Timing - details: Gradual onset, Still present, Waxing and waning Quality: Tightness Location: Substernal, Left chest Radiation: No: Jaw, Neck, Back, Abdominal, Left upper extremity, Right upper extremity Improved by: Nothing Worsened by: Palpation Associated symptoms: Other (anxiety). No: Diaphoresis, Nausea, Vomiting, Feeling faint / dizzy, General Weakness, Palpitations, Cough Similar symptoms before: Diagnosis (anxiety) Recently seen: Not recently seen - Additional information Additional information: 51-year-old female with a history of anxiety who is on BuSpar and citalopram has developed some chest pain in her left anterior chest wall similar to what she is had previously a number of times with panic attack. She states that she is continuing to take her medications she has not had a counselor in some time as this was not helpful for her previously. She is still having an issue with the grieving of her disabled son's and her mother's within the past 2 years. She is the support for the rest of her family as she is the oldest and they looked her for support. She feels overwhelmed. She feels that she has not spent the time to grieve for either of these deaths. She comes into the emergen cy department today wringing her hands and asking for some help with antianxiety. She states that she has had this a number of times previously she has been worked up in the emergency department with negative work-up and she is scheduled to have a stress test done. Review of Systems Constitutional: denies: Fever Eyes: denies: Decreased vision Ears: denies: Ear pain Nose: denies: Congestion Throat: denies: Sore throat Cardiac: reports: Chest pain / pressure. denies: Palpitations, Pedal edema, Calf pain Respiratory: denies: Dyspnea, Cough, Wheezing GI: denies: Abdominal Pain, Nausea, Vomiting, Constipation, Diarrhea : denies: Dysuria, Frequency Skin: denies: Rash Musculoskeletal: denies: Neck pain, Back pain, Extremity pain Neurologic: reports: Numbness (to finger tips). denies: Generalized weakness, Focal weakness Psychiatric: reports: Depressed, Anxiety, Insomnia. denies: Suicidal, Hallucinations, Delusions PD PAST MEDICAL HISTORY - Past Medical History Cardiovascular: None Respiratory: Asthma Neuro: None Endocrine/Autoimmune: None GI: None POULTRY PATHOLOGIST: None : None HEENT: Glaucoma Psych: Depression, Anxiety Musculoskeletal: None Derm: None - Past Surgical History Past Surgical History: Yes General: Other /POULTRY PATHOLOGIST: section, 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 - Present Medications Home Medications: Ambulatory Orders Medication Instructions Recorded Confirmed Albuterol Sulf [Ventolin Hfa 1 - 2 puffs INH Q4HR PRN #1 inhaler 06/18/19 Inhaler] FLUoxetine [PROzac] 10 mg PO BID 06/18/19 06/18/19 Albuterol Sulfate [Albuterol 2 puffs IH QID #1 hfa.aer.ad 12/09/19 Sulfate Hfa] Cetirizine [ZyrTEC] 10 mg PO DAILY #20 tablet 12/09/19 LORazepam [Ativan] 1 mg PO BID PRN #18 tablet 12/09/19 dexAMETHasone [Decadron] 4 mg PO DAILY #7 tablet 12/09/19 - Allergies Allergies/Adverse Reactions: Allergies Allergy/AdvReac Type Severity Reaction Status Date / Time aspirin Allergy Rash Verified 09/19/21 21:13 - Social History Does the pt smoke?: Yes Smoking Status: Current every day smoker Does the pt drink ETOH?: No Does the pt have substance abuse?: No - Immunizations Immunizations are current?: Yes - POLST Patient has POLST: No PD ED PE NORMAL - Vitals Vital signs reviewed: Yes - General General: Alert and oriented X 3, Well developed/nourished, Other (Appears anxious wringing her hands continuously and appears to have insight.) - HEENT HEENT: Atraumatic, PERRL, EOMI - Neck Neck: Supple, no meningeal sign, No bony TTP - Cardiac Cardiac: RRR, No murmur - Respiratory Respiratory: No respiratory distress, Clear bilaterally, Other (chest wall tenderness to the left anterior chest .) - Abdomen Abdomen: Normal bowel sounds, Soft, Non tender, Non distended, No organomegaly - Back Back: No CVA TTP, No spinal TTP - Derm Derm: Normal color, Warm and dry, No rash - Extremities Extremities: No deformity, No edema - Neuro Neuro: Alert and oriented X 3, 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, No motor deficit, No sensory deficit, Normal speech Eye Opening: Spontaneous Motor: Obeys Commands Verbal: Oriented GCS Score: 15 - Psych Psych: Normal mood, Normal affect Results - Vitals Vitals: Vital Signs - 24 hr 09/19/21 21:09 Temperature 36.0 C L Heart Rate 77 Respiratory 14 Rate Blood Pressure 147/84 H O2 Saturation 99 Oxygen O2 Source Room air PD MEDICAL DECISION MAKING - ED course Complexity details: reviewed old records, reviewed results, re-evaluated patient, considered differential, d/w patient ED course: 51-year-old female with a history of anxiety has acute anxiety today including some pain in her left chest. She has chest wall pain that reproduces her symptoms she is not wanting to have a cardiac work-up as she has had this previously and has had similar symptoms multiple times. She request some Ativan which she is ministered.She would like to go home. She has a primary care doctor for follow-up and she is in the process of getting a exercise treadmill test done as she has had the symptoms multiple times. Departure - Departure Disposition: 01 Home, Self Care Clinical Impression: Anxiety reaction Instructions: ED Panic Attack, ED Stress React Follow-Up: Elaine Restrepo PA-C [Primary Care Provider] - Comments: Akbar, today it looks like the pain you are having in your chest is related to your anxiety as it has been previously and we have given you some Ativan which I hope helps tonight. Follow-up with Megan Restrepo about your stress test and about a counselor. Grieving is an important part of life to resolve.
[2021-09-19] MEDS: LORazepam 1 MG TABLET PO STA (22:27)
== END 2021-09-19 22:38 | disposition home or self-care (01) ==
LOC: ED 21:04
DX: F41.1 Generalized anxiety disorder (principal); F17.200 Nicotine dependence, unspecified, uncomplicated
CPT/HCPCS: 99282; 99283; J8499